=== PATIENT | male | born 1970 | race Caucasian/White ===

== ENCOUNTER 2016-03-31 15:36 | Emergency (ER) | payer OTHER ==
[~2016-03-31] VITALS: Ht 188 cm; Wt 98.6 kg
[2016-03-31 17:04] LABS: HEMATOCRIT 50.2 % (38.0-50.0); MCH 31.1 PG (29.0-34.0); MCHC 35.9 G/DL (30.0-36.0); MCV 86.9 FL (86-99); MEAN PLAT.VOLUME 9.2 uM^3 (9.0-12.4); PLATELET COUNT 286 K/uL (156-360); RBC DIS.WIDTH-CV 12.2 % (11.8-14.6); RBC DIS.WIDTH-SD 38.5 % (39-53); RED BLOOD COUNT 5.78 M/uL (4.00-5.50); WHITE BLOOD COUNT 12.7 K/uL (4.1-10.2)
[2016-03-31 17:18] LABS: CHLORIDE 105 mEq/L (99-109); POTASSIUM 3.9 mEq/L (3.7-5.4); SODIUM 139 mEq/L (136-147)
[2016-03-31 17:18] LABS: ADD MIUA? NO; BILIRUBIN NEGATIVE; BLOOD NEGATIVE; COLOR YELLOW ((YELLOW)); GLUCOSE (STRIP) NEGATIVE; KETONES NEGATIVE; LEUKOCYTES NEGATIVE; NITRITE NEGATIVE; PROTEIN (STRIP) 30; SPECIFIC GRAVITY 1.026 (1.000-1.030); UCUL ADDED? NO; UROBILINOGEN 0.2 MG/DL (0.2-1.0)
[2016-03-31 17:20] LABS: GLUCOSE 135 mg/dL (70-99)
[2016-03-31 17:21] LABS: ANION GAP 12 MEQ/L (2-14)
[2016-03-31 17:22] LABS: TOTAL BILIRUBIN 0.7 mg/dL (0.0-1.0)
[2016-03-31 17:24] LABS: ALKALINE PHOSPHATASE 69 IU/L (3-129); GFR ESTIMATE (CALCULATED) > 59 mL/min/
[2016-03-31 17:25] LABS: UREA NITROGEN (BUN) 15 mg/dL (9-23)
[2016-03-31 18:51] LABS: CREATINE KINASE 119 IU/L (1-294); LIPASE 22 U/L (1.0-51.0)
[2016-03-31 19:43] VITALS: BP 148/87
== END 2016-03-31 19:45 | disposition left against medical advice (07) ==
LOC: EME 15:36
DX: R10.9 Unspecified abdominal pain (principal)
CPT/HCPCS: 80053; 81003; 82550; 83690; 85027; 99281; 99283; J1170; J2405; J7030